=== PATIENT | female | born 1965 | race Caucasian/White ===

== ENCOUNTER → 2017-03-07 | Outpatient (CLI) | payer BC ==
[~2017-03-07] MED LIST: ASPIR-LOW81 MG PO; ASPIRIN 81M81 MG/TA2 PO; DIABETA 5MG5 MG/TAB PO; DUO-KAPS1 CAP PO; FOLIC ACID 11 MG/TA1 PO; JANUVIA 100MG100 MG PO; LISINOPRIL20 MG PO; LOPRESSOR 550 MG/TAB PO; METFORMIN HCL500 M1 PO; MICARDIS80 MG PO; MICRONASE1.25 MG; MICRONASE5 MG PO; MVI; OXY IR5 MG PO; PRILOSEC 20MG20 MG PO; TOPAMAX50 MG PO; TOPROL XL50 MG PO; ULTRAM 50MG TAB50 MG PO; VYTORIN; ZOCOR 20MG20 MG PO; [UNRECOGNIZED DRUG - REMARK]
== END ==
LOC: COL.RAD 07:53
DX: E11.9 Type 2 diabetes mellitus without complications (principal); R11.0 Nausea
CPT/HCPCS: A9541

== ENCOUNTER 2017-05-23 09:54 | Emergency (ER) | payer BC ==
[~2017-05-23] VITALS: Ht 170.2 cm; Wt 126.4 kg
[2017-05-23 09:59] VITALS: TEMP 99
[2017-05-23] MEDS ORDERED: JANUVIA 100MG100 MG PO (10:19)
[2017-05-23] MEDS ORDERED: FARXIGA10 PO (10:19)
[2017-05-23] MEDS ORDERED: MICARDIS40 MG PO (10:19)
[2017-05-23 11:00] LABS: COLLECTION METHOD CLEAN CATCH
[2017-05-23 11:12] LABS: BASO % 0.3 % (0.0-2.0); EOS % 0.7 % (0-4.0); GRAN # 2.2 (1.4-6.5); GRAN % 76.4 % (42.2-75.2); LYMPH # 0.4 (1.2-3.4); LYMPH % 12.7 % (20.0-51.0); MEAN CELL VOLUME 89 fl (80.0-100.0); MEAN CORPUSCULAR HGB CONC 32 g/dl (33.0-37.0); MONO # 0.3 (0.1-0.6); MONO % 9.6 % (1.7-9.3); RED BLOOD COUNT 4.01 M/mm3 (4.10-5.30); WHITE BLOOD COUNT 2.9 K/mm3 (4.8-10.8)
[2017-05-23 11:15] LABS: MUCOUS Present /lpf; PH 6 (5-8); SQUAMOUS EPITHELIAL 0-2 /hpf; URINE APPEARANCE Clear; URINE BACTERIA Rare /hpf; URINE BILIRUBIN Negative (NEGATIVE); URINE BLOOD Negative (NEGATIVE); URINE COLOR Amber; URINE GLUCOSE 3+ (NEGATIVE); URINE KETONE 2+ (NEGATIVE); URINE LEUKOCYTE ESTERASE Negative (NEGATIVE); URINE PROTEIN(semi-quant) Negative (NEGATIVE); URINE UROBILINOGEN >=4.0 mg/dL (NEGATIVE); URINE WBC 0-2 /hpf
[2017-05-23 11:18] LABS: ADJUSTED CALCIUM 9.7 mg/dL (8.4-10.2); ALANINE AMINOTRANSFERASE 48 U/L (9-52); ALBUMIN 3.8 gm/dL (3.5-5.0); ALCOHOL(ethanol),MEDICAL < 10 mg/dL; ALKALINE PHOSPHATASE 159 U/L (50-136); ANION GAP 15 mmol/L (7-16); BILIRUBIN,TOTAL 6.6 mg/dL (0.0-1.0); BLOOD UREA NITROGEN 15 mg/dL (7-17); CALCIUM 9.5 mg/dL (8.4-10.2); CARBON DIOXIDE 23 mmol/L (22-30); CHLORIDE 98 mmol/L (98-107); CREATININE, serum 0.64 mg/dL (0.52-1.25); GLUCOSE 184 mg/dL (74-106); LIPASE 279 U/L (23-300); SODIUM 136 mmol/L (137-145); TOTAL PROTEIN 8.7 gm/dL (6.4-8.2)
[2017-05-23 11:34] LABS: HEMATOCRIT 35.8 % (37.0-47.0); HEMOGLOBIN 11.3 g/dl (12.5-16.0); MEAN CORPUSCULAR HEMOGLOBIN 28 pg (27.0-31.0)
[2017-05-23 11:35] LABS: PLATELET COUNT 41 K/mm3 (130-400)
[2017-05-23 12:14] LABS: INR 2.2 (0.8-3.0)
[2017-05-23] MEDS ORDERED: ATIVAN 0.50.5 MG/TAB PO (12:28)
[2017-05-23] MEDS ORDERED: PHENERGAN 25 TA25 MG PO (12:28)
[2017-05-23] MEDS ORDERED: ZOFRAN ODT4 MG PO (12:28)
[2017-05-23 12:39] VITALS: BP 127/64; PULSE 103
== END 2017-05-23 12:40 | disposition home or self-care (01) ==
LOC: COL.ER 09:54
PROVIDERS: Physician Assistant
DX: F10.239 Alcohol dependence with withdrawal, unspecified (principal); R19.7 Diarrhea, unspecified; E11.9 Type 2 diabetes mellitus without complications; I10 Essential (primary) hypertension; Y90.0 Blood alcohol level of less than 20 mg/100 ml; Z87.19 Personal history of other diseases of the digestive system; Z86.2 Personal history of diseases of the blood and blood-forming organs and certain disorders involving the immune mechanism; Z79.82 Long term (current) use of aspirin
CPT/HCPCS: J2060; J2550; J7030

== ENCOUNTER → 2017-07-31 | Outpatient (CLI) | payer BC ==
[~2017-07-31] MED LIST changes: +ATIVAN 0.50.5 MG/TAB PO; +FARXIGA10 PO; +MICARDIS40 MG PO; +PHENERGAN 25 TA25 MG PO; +ZOFRAN ODT4 MG PO
== END ==
LOC: COL.RAD 10:28
DX: K74.60 Unspecified cirrhosis of liver (principal)

== ENCOUNTER → 2018-06-28 | Outpatient (CLI) | payer BC | LOC: MC.RAD 13:26 | DX: Z00.00 Encounter for general adult medical examination without abnormal findings (principal); N63.10 Unspecified lump in the right breast, unspecified quadrant | CPT/HCPCS: G0279 ==

== ENCOUNTER 2018-12-05 11:45 | Inpatient (IN) | payer BC ==
[~2018-12-05] VITALS: Ht 170.2 cm; Wt 121.0 kg
[2018-12-05] VITALS (10 sets, daily range): BP systolic 99–125; BP diastolic 35–51; PULSE 93–105; TEMP 97.8–98.1
[2018-12-05] MEDS ORDERED: WOMEN'S DAILY1 TAB PO (12:35)
[2018-12-05] MEDS ORDERED: VITAMIN B12 681 TAB PO (12:38)
[2018-12-05] MEDS ORDERED: B-121000 MCG PO (12:39)
[2018-12-05 13:49] LABS: BASO % 0.5 % (0.0-2.0); EOS # 0.1 (0.0-0.7); EOS % 2.3 % (0-4.0); GRAN # 1.4 (1.4-6.5); GRAN % 64.2 % (42.2-75.2); LYMPH # 0.4 (1.2-3.4); LYMPH % 18.3 % (20.0-51.0); MEAN CELL VOLUME 87 fl (80.0-100.0); MEAN CORPUSCULAR HGB CONC 28 g/dl (33.0-37.0); MONO # 0.3 (0.1-0.6); MONO % 14.2 % (1.7-9.3); REDCELL DISTRIBUTION WIDTH-CV 24.9 % (11.5-14.5)
[2018-12-05 13:50] LABS: INR 3.1 (0.8-3.0); PROTHROMBIN TIME 35.7 SECONDS (9.7-12.8)
[2018-12-05 13:52] LABS: ALBUMIN 2.4 gm/dL (3.5-5.0); BILIRUBIN,TOTAL 8.7 mg/dL (0.0-1.0); CREATININE, serum 0.84 (0.52-1.25); POTASSIUM 3.3 mmol/L (3.4-5.0)
[2018-12-05 13:53] LABS: IRON,SERUM 76 ug/dL (35-150)
[2018-12-05 14:01] LABS: HEMATOCRIT 22.5 % (37.0-47.0); MEAN CORPUSCULAR HEMOGLOBIN 24 pg (27.0-31.0)
[2018-12-05 14:02] LABS: HEMOGLOBIN 6.2 g/dl (12.5-16.0); TOTAL IRON BINDING CAPACITY 250 ug/dL (265-497)
[2018-12-05 14:03] LABS: PLATELET COUNT 45 K/mm3 (130-400)
[2018-12-05 14:29] LABS: FERRITIN 22 ng/mL (11-264)
--- NOTE | 2018-12-05 19:58 | NUR ---
Initial shift assessment done- denies pain/nausea. Visiting with family/friends at this time. No requests. Understands to remains NPO this shift- going for EGD banding at 1230 tomorrow. Tele on. Understands repeat H&H at 2200 tonight,, Has PICC to MASHA- NS at 150cc/hr
[2018-12-05 22:29] LABS: HEMATOCRIT 24.1 % (37.0-47.0); HEMOGLOBIN 6.8 g/dl (12.5-16.0)
--- NOTE | 2018-12-05 23:20 | NUR ---
Trena LOPEZ notified of HGB 6.8- Ordered another unit of blood to be given
[2018-12-06] VITALS (18 sets, daily range): BP systolic 97–148; BP diastolic 34–95; PULSE 76–99; TEMP 97–98.6
--- NOTE | 2018-12-06 00:21 | NUR ---
Unit of blood started at this time-infusing into PICC red port- protocol followed-
[2018-12-06 03:59] LABS: MEAN CELL VOLUME 86 fl (80.0-100.0); MEAN CORPUSCULAR HGB CONC 29 g/dl (33.0-37.0); PLATELET COUNT 50 K/mm3 (130-400); RED BLOOD COUNT 2.98 M/mm3 (4.10-5.30)
[2018-12-06 04:03] LABS: HEMATOCRIT 25.7 % (37.0-47.0); HEMOGLOBIN 7.5 g/dl (12.5-16.0); MEAN CORPUSCULAR HEMOGLOBIN 25 pg (27.0-31.0)
[2018-12-06 04:14] LABS: ALBUMIN 2.2 gm/dL (3.5-5.0); BILIRUBIN,TOTAL 11.8 mg/dL (0.0-1.0); CALCIUM 7.5 mg/dL (8.4-10.2); CREATININE, serum 0.88 (0.52-1.25); MAGNESIUM 1.5 mg/dL (1.6-2.3); POTASSIUM 4.4 mmol/L (3.4-5.0); TOTAL PROTEIN 6.8 gm/dL (6.4-8.2)
[2018-12-06 04:31] LABS: BAND 3 % (0-10); EOSINOPHIL 3 % (0-4); LYMPHOCYTE 17 % (20.0-51.0); NEUTROPHILS 66 % (42.0-75.2); PLATELET ESTIMATE DECREASED (NORMAL)
[2018-12-06 04:32] LABS: ANISOCYTOSIS 2+; HYPOCHROMIA 1+; POIKILOCYTOSIS 1+
--- NOTE | 2018-12-06 05:55 | NUR ---
Did get the one unit of blood during the night-- repeat hgb now 7.5, continues with NS at 150cc/hr and Octreotide at 50cc/hr, NPO for EGD at noon, consent signed
--- NOTE | 2018-12-06 07:20 | NUR ---
Patient is awake and alert upon entering room. States she is slightly anxious about getting EGD done and she is very hungry. She is denying having any pain. Personal items and call light are within reach.
[2018-12-06 15:23] LABS: HEMATOCRIT 25.7 % (37.0-47.0); HEMOGLOBIN 7.2 g/dl (12.5-16.0)
--- NOTE | 2018-12-06 15:29 | NUR ---
ASHTYN met with the patient to discuss discharge plan. The patient lives alone in [place]. She states that she has great friend support in the area. She reports independence with ADLs and does not use any DME. The patient's PCP is Dr. Thea Caceres and she receives her medications at the [facility]. She reports no difficulties obtaining her meds. The patient does not have advanced directives and she was not interested in completing them at this time. The patient plans to return home upon discharge. ASHTYN then addressed the patient's alcohol use. The patient reports that she just broke up with her boyfriend on Monday, who drank a lot and was a negative influence. She states that she has seen an addiction counselor in the past and would be interested in talking to someone again. ASHTYN discussed outpatient alcohol treatment options in the [place] area and provided her with information on those options and also addiction counselors in the [facility]. The patient plans to look over the options. The patient also informed ASHTYN that she has COBRA. ASHTYN consulted financial counselor, Avinash. Avinash plans to meet with the patient. ASHTYN to continue to follow.
--- NOTE | 2018-12-06 16:58 | NUR ---
Patient sitting up in bed with clear liquid diet. States broth has been soothing her throat and the morphine has helped. She feels as if she needs to belch. Encouraged to sit up or lay on left side for gas pains. Did want to stand. Was able to making machine operator one attempt and gait was steady. Call light and personal items are within reach.
--- NOTE | 2018-12-06 22:32 | NUR ---
Completed assessment and medication administration; PT tolerated all cares well; PT denied further needs or concerns at time of assessment; No further assessed or verbalized concerns at time of exit; PT able to return to a comfortable position in bed with personal items and call light with in reach; Fluids continue to run as ordered to RUE PICC; NS at 125ml/hr and Octreotide at 50ml/hr; Will continue to monitor. CDA
[2018-12-07] VITALS (13 sets, daily range): BP systolic 97–134; BP diastolic 38–65; PULSE 76–88; TEMP 97.9–98.7
--- NOTE | 2018-12-07 03:25 | NUR ---
PT resting well in bed with call light and personal items within reach; No further assessed or verbalized concerns at times of rounds; Fluids continue to run as ordered; Will continue to monitor. CDA
[2018-12-07 06:44] LABS: BASO % 0.5 % (0.0-2.0); EOS # 0.1 (0.0-0.7); EOS % 3.5 % (0-4.0); GRAN # 2.5 (1.4-6.5); GRAN % 69.1 % (42.2-75.2); LYMPH # 0.6 (1.2-3.4); LYMPH % 16.3 % (20.0-51.0); MEAN CELL VOLUME 89 fl (80.0-100.0); MEAN CORPUSCULAR HGB CONC 28 g/dl (33.0-37.0); MONO # 0.4 (0.1-0.6); MONO % 10.1 % (1.7-9.3); PLATELET COUNT 55 K/mm3 (130-400); RED BLOOD COUNT 2.98 M/mm3 (4.10-5.30); REDCELL DISTRIBUTION WIDTH-CV 22.8 % (11.5-14.5)
[2018-12-07 06:52] LABS: HEMATOCRIT 26.5 % (37.0-47.0); HEMOGLOBIN 7.4 g/dl (12.5-16.0); MEAN CORPUSCULAR HEMOGLOBIN 25 pg (27.0-31.0)
[2018-12-07 06:54] LABS: INR 2.7 (0.8-3.0)
[2018-12-07 06:57] LABS: ALBUMIN 2.3 gm/dL (3.5-5.0); CALCIUM 7.2 mg/dL (8.4-10.2); CREATININE, serum 0.87 (0.52-1.25); MAGNESIUM 1.8 mg/dL (1.6-2.3); PARTIAL THROMBOPLASTIN TIME 39.5 SECONDS (26.0-37.0)
--- NOTE | 2018-12-07 07:05 | NUR ---
Report given to TYREL Sims; No significant changes or concerns at time of shift change. CDA
--- NOTE | 2018-12-07 07:57 | NUR ---
Pt lying in bed, alert and oriented, awakens to verbal stimuli. Breathing even and unlabored, denies shortness of breath. C/O pain to ankle 09/02. Denies any pain in throat. Swallowing with no difficulty. Some swelling to left ankle still present. Completed morning assessment. Denies any needs at this time.
--- NOTE | 2018-12-07 12:09 | NUR ---
First visit from the career based intervention coordinator. No needs right now.
--- NOTE | 2018-12-07 14:58 | NUR ---
ASHTYN met with the patient to follow up on preference for outpatient alcohol treatment. The patient reports that she has not had a chance to look over the information ASHTYN provided, but plans to do so today and then get something set up. The patient had no other questions or concerns for ASHTYN at this time, but SW to continue to follow.
--- NOTE | 2018-12-07 17:23 | NUR ---
Pt lying in bed, opens eyes to verbal stimuli. Denies any pain or problems swallowing. No needs voiced at this time, will continue to monitor. Call light in reach.
[2018-12-07 19:01] LABS: COLLECTION METHOD CLEAN CATCH
--- NOTE | 2018-12-07 19:01 | NUR ---
REPORT GIVEN TO BRYSON SARAH
[2018-12-07 19:11] LABS: MUCOUS Present /lpf; PH 5 (5-8); URINE APPEARANCE Hazy; URINE BACTERIA Rare /hpf; URINE BILIRUBIN Positive (NEGATIVE); URINE BLOOD Negative (NEGATIVE); URINE COLOR Amber; URINE GLUCOSE Negative (NEGATIVE); URINE KETONE Negative (NEGATIVE); URINE LEUKOCYTE ESTERASE Negative (NEGATIVE); URINE NITRATE Negative (NEGATIVE); URINE PROTEIN(semi-quant) 1+ (NEGATIVE); URINE RBC None Seen /hpf; URINE UROBILINOGEN >=4.0 mg/dL (NEGATIVE)
--- NOTE | 2018-12-07 21:15 | NUR ---
Sitting at bedside. assessment complete. Lungs clear. Heart sounds normal. Bowels active x4. Pulses present throughout. Left ankle edema present +1. Picc to right upper without complications. Denies pain. Denies needs at this time. Call light in reach.
[2018-12-08] VITALS (12 sets, daily range): BP systolic 94–127; BP diastolic 43–66; PULSE 81–87; TEMP 98.2–98.9
--- NOTE | 2018-12-08 05:48 | NUR ---
Patient had unevenful night. Resting in bed this AM. Denies needs. Call light in reach.
--- NOTE | 2018-12-08 06:55 | NUR ---
Report given to TYREL Sims
[2018-12-08 07:09] LABS: BASO % 0.7 % (0.0-2.0); EOS # 0.1 (0.0-0.7); EOS % 3.6 % (0-4.0); GRAN % 66.1 % (42.2-75.2); LYMPH # 0.5 (1.2-3.4); LYMPH % 17.8 % (20.0-51.0); MEAN CELL VOLUME 90 fl (80.0-100.0); MEAN CORPUSCULAR HGB CONC 28 g/dl (33.0-37.0); MONO # 0.4 (0.1-0.6); MONO % 11.5 % (1.7-9.3); PLATELET COUNT 52 K/mm3 (130-400); RED BLOOD COUNT 2.79 M/mm3 (4.10-5.30); REDCELL DISTRIBUTION WIDTH-CV 22.9 % (11.5-14.5)
[2018-12-08 07:14] LABS: HEMATOCRIT 25.2 % (37.0-47.0); HEMOGLOBIN 7.1 g/dl (12.5-16.0); MEAN CORPUSCULAR HEMOGLOBIN 25 pg (27.0-31.0)
[2018-12-08 07:21] LABS: ALBUMIN 2.1 gm/dL (3.5-5.0); BILIRUBIN,TOTAL 12.6 mg/dL (0.0-1.0); CREATININE, serum 0.79 (0.52-1.25); TOTAL PROTEIN 6.5 gm/dL (6.4-8.2)
[2018-12-08 08:15] LABS: INR 3.3 (0.8-3.0); PROTHROMBIN TIME 37.3 SECONDS (9.7-12.8)
--- NOTE | 2018-12-08 09:00 | NUR ---
Pt sitting up in bed, alert and oriented. Breathing even and unlabored, denies pain or shortness of breath. No N/V today. Pt eager to leave, still waiting on doctor to discuss current medications infusing. Swelling still present in left foot, non pitting edema, pt denies pain. Completed morning assessment. Will continue to monitor. Call light in reach.
[2018-12-08] MEDS ORDERED: FERROUS SU325 MG/TAB PO (12:59)
[2018-12-08] MEDS ORDERED: FOLIC ACID 11 MG/TA1 PO (12:59)
[2018-12-08] MEDS ORDERED: THIAMINE 1100 MG/TAB PO (12:59)
--- NOTE | 2018-12-08 14:00 | NUR ---
BEGAN BLOOD TRANSFUSION AT 60ML/HR. TAUGHT PT ABOUT ADVERSE REACTIONS. THIS RN WILL STAY AT BEDISIDE FOR FIRST 15MIN.
--- NOTE | 2018-12-08 14:11 | NUR ---
No adverse reactions in first 15 minutes. Pt will alert for any adverse reactions. Sped up blood transfusion to 200ml/hr. Will continue to monitor.
--- NOTE | 2018-12-08 16:14 | NUR ---
Blood transfusion complete. Pt tolerated well, denies any shortness of breath or pain.
--- NOTE | 2018-12-08 16:30 | NUR ---
Discharge paperwork given. All questions asked and answered. Pt gathered all belongings. PICC line to be removed by Zayda SARAH.
--- NOTE | 2018-12-08 17:20 | NUR ---
Pt escorted out via wheelchair by [facility] staff.
== END 2018-12-08 17:20 | disposition home or self-care (01) | DRG 432 ==
LOC: MEDICAL 11:45
PROVIDERS: Internal Medicine Gastroenterology; Physician Assistant; ADMIT Family Medicine
PROC: 02HV33Z Insertion of Infusion Device into Superior Vena Cava, Percutaneous Approach (ICD-10-PCS; 2018-12-05)
PROC: 06L38CZ Occlusion of Esophageal Vein with Extraluminal Device, Via Natural or Artificial Opening Endoscopic (ICD-10-PCS; principal; 2018-12-06 12:30)
DX: K70.30 Alcoholic cirrhosis of liver without ascites (principal); I85.11 Secondary esophageal varices with bleeding; D61.818 Other pancytopenia; F10.288 Alcohol dependence with other alcohol-induced disorder; D62 Acute posthemorrhagic anemia; E87.6 Hypokalemia; E83.42 Hypomagnesemia; E11.9 Type 2 diabetes mellitus without complications; I10 Essential (primary) hypertension; R11.2 Nausea with vomiting, unspecified; R31.9 Hematuria, unspecified; M25.472 Effusion, left ankle; Z79.84 Long term (current) use of oral hypoglycemic drugs
CPT/HCPCS: 99223-AI; 99232-AI; 99239; C1751; C1892; C9113; J2270; J2354; J2405; J2704; J3475; J3480; J7030; J7040; P9016

== ENCOUNTER 2018-12-15 19:27 | Inpatient (IN) | payer BC ==
[~2018-12-15] VITALS: Ht 170.2 cm; Wt 125.0 kg
[~2018-12-15 19:27] MED LIST changes: +B-121000 MCG PO; +FERROUS SU325 MG/TAB PO; +THIAMINE 1100 MG/TAB PO; +VITAMIN B12 681 TAB PO; +WOMEN'S DAILY1 TAB PO
[2018-12-15 20:08] LABS: BASO % 0.5 % (0.0-2.0); EOS % 0.3 % (0-4.0); GRAN # 5.8 (1.4-6.5); GRAN % 88.6 % (42.2-75.2); HEMOGLOBIN 10.8 g/dl (12.5-16.0); LYMPH # 0.4 (1.2-3.4); LYMPH % 6.3 % (20.0-51.0); MEAN CELL VOLUME 86 fl (80.0-100.0); MEAN CORPUSCULAR HEMOGLOBIN 26 pg (27.0-31.0); MEAN CORPUSCULAR HGB CONC 30 g/dl (33.0-37.0); MONO # 0.3 (0.1-0.6); MONO % 3.8 % (1.7-9.3); PLATELET COUNT 66 K/mm3 (130-400); RED BLOOD COUNT 4.16 M/mm3 (4.10-5.30); REDCELL DISTRIBUTION WIDTH-CV 24.6 % (11.5-14.5)
[2018-12-15 20:11] LABS: HEMATOCRIT 35.9 % (37.0-47.0)
[2018-12-15 20:12] LABS: INR 4.7 (0.8-3.0)
[2018-12-15 20:15] LABS: PARTIAL THROMBOPLASTIN TIME 47.2 SECONDS (26.0-37.0)
[2018-12-15 20:20] LABS: PROTHROMBIN TIME 57.9 SECONDS (9.7-12.8)
[2018-12-15 20:29] LABS: ALANINE AMINOTRANSFERASE 20 U/L (9-52); ALBUMIN 2.3 gm/dL (3.5-5.0); ALKALINE PHOSPHATASE 119 U/L (50-136); ANION GAP 12 mmol/L (7-16); AST,SGOT 71 U/L (15-37); BILIRUBIN,TOTAL 19.4 mg/dL (0.0-1.0); BLOOD UREA NITROGEN 17 mg/dL (7-17); C-REACTIVE PROTEIN 3.9 mg/dL (0.0-0.9); CALCIUM 8.5 mg/dL (8.4-10.2); CARBON DIOXIDE 20 mmol/L (22-30); CHLORIDE 105 mmol/L (98-107); CREATININE, serum 1.57 (0.52-1.25); GLUCOSE 107 mg/dL (74-106); LIPASE 312 U/L (23-300); POTASSIUM 3.3 mmol/L (3.4-5.0); SODIUM 137 mmol/L (137-145); TOTAL PROTEIN 7.3 gm/dL (6.4-8.2)
[2018-12-15 20:36] LABS: ALCOHOL(ethanol),MEDICAL < 10 mg/dL
[2018-12-15 20:47] LABS: LACTIC ACID 4.1 mmol/L (0.4-2.0)
[2018-12-15 21:40] LABS: COLLECTION METHOD CLEAN CATCH
[2018-12-15 21:52] LABS: GRANULAR CAST >12 /lpf; HYALINE CAST >12 /lpf; MUCOUS Present /lpf; PH 5 (5-8); SQUAMOUS EPITHELIAL 20-50 /hpf; URINE APPEARANCE Cloudy; URINE BACTERIA Rare /hpf; URINE BILIRUBIN Positive (NEGATIVE); URINE BLOOD 3+ (NEGATIVE); URINE COLOR Amber; URINE GLUCOSE 1+ (NEGATIVE); URINE KETONE Negative (NEGATIVE); URINE LEUKOCYTE ESTERASE Negative (NEGATIVE); URINE NITRATE Negative (NEGATIVE); URINE PROTEIN(semi-quant) 2+ (NEGATIVE); URINE UROBILINOGEN >=4.0 mg/dL (NEGATIVE)
[2018-12-16] VITALS (863 sets, daily range): BP systolic 87–130; BP diastolic 43–65; PULSE 75–104; TEMP 97.5–99.3; O2SAT 76–100
[2018-12-16 05:16] LABS: BASO % 0.1 % (0.0-2.0); GRAN % 85.3 % (42.2-75.2); LYMPH # 0.5 (1.2-3.4); LYMPH % 6.6 % (20.0-51.0); MEAN CELL VOLUME 87 fl (80.0-100.0); MEAN CORPUSCULAR HGB CONC 31 g/dl (33.0-37.0); MONO # 0.5 (0.1-0.6); MONO % 7.6 % (1.7-9.3); PLATELET COUNT 51 K/mm3 (130-400); RED BLOOD COUNT 3.16 M/mm3 (4.10-5.30); REDCELL DISTRIBUTION WIDTH-CV 24.3 % (11.5-14.5)
[2018-12-16 05:21] LABS: HEMATOCRIT 27.5 % (37.0-47.0); HEMOGLOBIN 8.4 g/dl (12.5-16.0); MEAN CORPUSCULAR HEMOGLOBIN 27 pg (27.0-31.0)
[2018-12-16 05:30] LABS: ALBUMIN 1.9 gm/dL (3.5-5.0); BILIRUBIN,TOTAL 17.8 mg/dL (0.0-1.0); CREATININE, serum 1.78 (0.52-1.25); MAGNESIUM 1.3 mg/dL (1.6-2.3); POTASSIUM 3.5 mmol/L (3.4-5.0); TOTAL PROTEIN 5.9 gm/dL (6.4-8.2)
[2018-12-16 07:35] LABS: INR 5.6 (0.8-3.0); PROTHROMBIN TIME 68.7 SECONDS (9.7-12.8)
--- NOTE | 2018-12-16 08:00 | NUR ---
Shift assessment complete at this time. Plan of care reviewed at bedside with patient. Additional time taken to address any other needs or concerns. Vitals stable at this time. Pt denies pain or any other discomfort. Generalized jaundice noted throughout skin. Bed in low position, call light within reach. Will continue to monitor.
--- NOTE | 2018-12-16 12:00 | NUR ---
Shift reassessment complete at this time. No changes from previous assessment. Vitals stable at this time. Denies pain or any other discomfort. Bed in low position, call light within reach. No changes from previous neuro assessments. Will continue to monitor.
[2018-12-16 12:24] LABS: PROTHROMBIN TIME 61.9 SECONDS (9.7-12.8)
[2018-12-16 13:52] LABS: URINE PROTEIN:CREAT RATIO 0.43 (0.00-0.14)
--- NOTE | 2018-12-16 16:00 | NUR ---
Shift reassessment complete at this time. No changes from previous assessment. Vitals stable at this time. Denies pain or any other discomfort. Bed in low position, call light within reach. Will continue to monitor.
--- NOTE | 2018-12-16 19:01 | NUR ---
Bedside report given to TYREL Nicholas.
[2018-12-17] VITALS (398 sets, daily range): BP systolic 112–125; BP diastolic 46–76; PULSE 66–77; TEMP 97.8–99; O2SAT 87–99
[2018-12-17 05:18] LABS: MEAN CELL VOLUME 88 fl (80.0-100.0); MEAN CORPUSCULAR HGB CONC 30 g/dl (33.0-37.0); RED BLOOD COUNT 3.06 M/mm3 (4.10-5.30); REDCELL DISTRIBUTION WIDTH-CV 23.7 % (11.5-14.5)
[2018-12-17 05:22] LABS: INR 4.5 (0.8-3.0)
[2018-12-17 05:26] LABS: PROTHROMBIN TIME 54.5 SECONDS (9.7-12.8)
[2018-12-17 05:30] LABS: ALBUMIN 2.5 gm/dL (3.5-5.0); BILIRUBIN,TOTAL 20.1 mg/dL (0.0-1.0); CALCIUM 8.1 mg/dL (8.4-10.2); CREATININE, serum 1.77 (0.52-1.25); MAGNESIUM 1.7 mg/dL (1.6-2.3); PHOSPHOROUS 4.5 mg/dL (2.5-4.5); POTASSIUM 3.2 mmol/L (3.4-5.0); TOTAL PROTEIN 6.3 gm/dL (6.4-8.2)
[2018-12-17 05:43] LABS: HEMATOCRIT 26.9 % (37.0-47.0); HEMOGLOBIN 8.1 g/dl (12.5-16.0); MEAN CORPUSCULAR HEMOGLOBIN 26 pg (27.0-31.0)
[2018-12-17 05:44] LABS: PLATELET COUNT 47 K/mm3 (130-400)
[2018-12-17 05:56] LABS: BAND 3 % (0-10); BASOPHIL 1 % (0-2); EOSINOPHIL 2 % (0-4); NEUTROPHILS 80 % (42.0-75.2); PLATELET ESTIMATE DECREASED (NORMAL)
[2018-12-17 05:57] LABS: TARGET CELLS 1+
[2018-12-17 05:58] LABS: ANISOCYTOSIS 1+; HYPOCHROMIA 3+; MICROCYTOSIS 1+; POIKILOCYTOSIS 1+
[2018-12-17 05:59] LABS: LYMPHOCYTE 13 % (20.0-51.0)
--- NOTE | 2018-12-17 07:20 | NUR ---
Report received from TYREL Nicholas. Patient currently sleeping. Plan of Care reviewed. Octreotide gtt infusing. Care taken over at this time
--- NOTE | 2018-12-17 09:45 | NUR ---
Dr. Vargas here to see patient
--- NOTE | 2018-12-17 13:17 | NUR ---
Report given to TYREL Hardy. Patient transferred to room 318
--- NOTE | 2018-12-17 13:20 | NUR ---
patient arrived to the Medical floor room 318 from ICU at this time, she is alert/oriented, vital signs stable, ambulating with stand by assistance, she we will check a FSBS prior to her eating and MOLDING ENGINEER will help her with a shower
--- NOTE | 2018-12-17 20:59 | NUR ---
PT DENIES PAIN OR DISCOMFORT, SITTING IN RECLINER. SKIN VERY JAUNDICE. REMOVED IV FROM LW, IV INFLITRATED, CATHETER INTACT, APPLIED PRESSURE STILL BLEEDING STOPPED AND PLACED PROTECTIVE DRSG ON AREA. NO NEEDS AT THIS TIME, CALL LIGHT WITHIN REACH.
[2018-12-18] VITALS (7 sets, daily range): BP systolic 95–140; BP diastolic 33–78; PULSE 71–79; TEMP 98–98.9
--- NOTE | 2018-12-18 04:43 | NUR ---
PT ADVISES THAT SHE GOT HER PERIOD.
--- NOTE | 2018-12-18 04:47 | NUR ---
PT'S BLOOD PRESSURE LOW IN RIGHT ARM. PT ADVISES THAT THE UPPER PART OF HER RIGHT ARM HURTS WITH BP MACHINE. DID WRIST AREA ON LEFT ARM, TURNED OFF IV PUMP AND DID BP AND BP WAS WNL. PT REQUEST THAT BP BE TAKEN IN WRIST AREA DUE TO PAIN FROM BP MACHINE AND IV STICKS. PT RESTING IN BED WITH NO NEEDS AT THIS TIME AND CALL LIGHT WITHIN REACH.
--- NOTE | 2018-12-18 05:14 | NUR ---
PT'S SKIN IS STILL JAUNDICE AND ABDOMEN IS STILL DISTENDED PT HAD MENTIONED EARLIER THAT SHE IS ON HER MENSTRUAL CYCLE. PT ADVISES THAT SHE STILL GETS HER PERIODS. THEY HAVE NOT STOPPED YET. PT UP CONSTANTLY TO BATHROOM, BUT HAS BEEN RESTING WELL IN BED. CALL LIGHT WITHIN REACH.
[2018-12-18 06:22] LABS: BASO % 0.6 % (0.0-2.0); EOS # 0.2 (0.0-0.7); EOS % 4.5 % (0-4.0); GRAN # 2.1 (1.4-6.5); GRAN % 62.6 % (42.2-75.2); LYMPH # 0.6 (1.2-3.4); MEAN CELL VOLUME 87 fl (80.0-100.0); MEAN CORPUSCULAR HGB CONC 30 g/dl (33.0-37.0); MONO # 0.4 (0.1-0.6); RED BLOOD COUNT 3.02 M/mm3 (4.10-5.30)
[2018-12-18 06:29] LABS: HEMATOCRIT 26.4 % (37.0-47.0); HEMOGLOBIN 7.9 g/dl (12.5-16.0); MEAN CORPUSCULAR HEMOGLOBIN 26 pg (27.0-31.0)
[2018-12-18 06:30] LABS: PLATELET COUNT 41 K/mm3 (130-400)
--- NOTE | 2018-12-18 06:32 | NUR ---
DR. DECKER CALLED AND NOTIFIED OF PT'S CRITICAL LAB OF PLT COUNT 41. NO ORDERS GIVEN.
[2018-12-18 06:34] LABS: INR 4.6 (0.8-3.0)
[2018-12-18 06:35] LABS: ALBUMIN 2.6 gm/dL (3.5-5.0); BILIRUBIN,TOTAL 20.1 mg/dL (0.0-1.0); CALCIUM 8.5 mg/dL (8.4-10.2); CREATININE, serum 1.19 (0.52-1.25); TOTAL PROTEIN 6.3 gm/dL (6.4-8.2)
[2018-12-18 06:36] LABS: PROTHROMBIN TIME 56.3 SECONDS (9.7-12.8)
[2018-12-18 06:39] LABS: POTASSIUM 2.9 mmol/L (3.4-5.0)
[2018-12-18 08:20] LABS: PATHOLOGY DIFF REVIEW OK
--- NOTE | 2018-12-18 09:00 | NUR ---
According to primary care nurse, PICC on hold for now due to patient's INR result. Will review for PICC need in am.
--- NOTE | 2018-12-18 09:15 | NUR ---
Assessment completed, alert/oriented, vital signs stable, denies pain or discomfort, stated her belly feels "less full and softer", INR still 4.5 , potasisum 2.9, notified hospitalist of critical labs and patient overall condition, heart RRR, lungs CTA, abdomen distended but less firm this morning, she is eating and drinking without complication, denies other needs at this time
--- NOTE | 2018-12-18 11:25 | NUR ---
Initial visit; Patient thanked [employer] [facility] Director for looking in on her and offering God's blessings. Patient has been served [employer] over the weekend.
--- NOTE | 2018-12-18 12:20 | NUR ---
Met with pt this morning at bedside. Licensed Practical Nurse Clinic Nurse will stop to see her later as will drug abuse social worker. Using the Serious Illness Conversation Guide, reviewed her wishes and concerns. [place] is very important to her and she is very troubled about her financial sitaution at this time. Support provided. 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 May switch PCP to Dr Brantley after discharge. Feels supported by her friends and family. Not interested in AA but would like to start seeing her counselor, Estephania, if can get insurance coverage for this. Will continue to follow. Will provide resources for DPOA-HC.
--- NOTE | 2018-12-18 20:40 | NUR ---
Shift assessment complete. Pt resting in bed, awake, a&o, cooperative c cares. Pt denies pain or any other c/o, reports she feels like ascites/edema is decreasing. Pt noted to have very distended abd, soft, non-tender. Pt is also very jaundiced. INT patent. Pt denies needs. IND in room. Call light in reach. Will monitor.
[2018-12-19 04:13] VITALS: BP 117/47; PULSE 81; TEMP 98.2
[2018-12-19 07:05] LABS: EOS # 0.1 (0.0-0.7); EOS % 4.1 % (0-4.0); GRAN # 1.8 (1.4-6.5); GRAN % 58.7 % (42.2-75.2); LYMPH # 0.7 (1.2-3.4); MEAN CELL VOLUME 87 fl (80.0-100.0); MEAN CORPUSCULAR HGB CONC 30 g/dl (33.0-37.0); MONO # 0.5 (0.1-0.6); MONO % 14.6 % (1.7-9.3); RED BLOOD COUNT 3.12 M/mm3 (4.10-5.30); REDCELL DISTRIBUTION WIDTH-CV 22.7 % (11.5-14.5)
[2018-12-19 07:06] LABS: HEMATOCRIT 27.2 % (37.0-47.0); HEMOGLOBIN 8.2 g/dl (12.5-16.0); MEAN CORPUSCULAR HEMOGLOBIN 26 pg (27.0-31.0)
[2018-12-19 07:07] LABS: PLATELET COUNT 42 K/mm3 (130-400)
[2018-12-19 07:12] VITALS: BP 129/61; PULSE 70; TEMP 98.1
[2018-12-19 07:17] LABS: ALBUMIN 2.5 gm/dL (3.5-5.0); BILIRUBIN,TOTAL 20.4 mg/dL (0.0-1.0); CALCIUM 8.7 mg/dL (8.4-10.2); CREATININE, serum 0.85 (0.52-1.25); MAGNESIUM 1.4 mg/dL (1.6-2.3); POTASSIUM 3.1 mmol/L (3.4-5.0); TOTAL PROTEIN 6.3 gm/dL (6.4-8.2)
--- NOTE | 2018-12-19 09:02 | NUR ---
Assessment complete.patient awake,a/ox3.denies pain or discomfort at this time.breathing even and unlabored.crackles auscultated to bilat bases.reports feeling better with lasix.VSS.pottassiumm replaced.pt is visibly jaundiced.all meds given.IVF infusing.no other needs voiced at this time.will continue to monitor.call light in reach
--- NOTE | 2018-12-19 10:07 | NUR ---
Met with pt this am. She has talked with her sister about DPOA-HC and feels she will be the one she selects. I provided her with our DPOA-HC form and encouraged her to use it even if it is only a temporary one until she can complete a more personalized one if she desires. She is not sleeping or resting well because of frequent trips to the restroom to void or stool which is really wearing her down. I did discuss with her that these meds may be ongoing but that hopefully the doses can be adjusted as her condition allows to give her some time to rest. Her MELD score from Dr Morris is 39 per his notes. She is aware that is quite high but reports it usually comes down. She is considering changing her GI specialist as she needs to feel confident that she can talk with them and that they will talk to her. Discussed with Tamar BUSCH. support provided.
[2018-12-19 11:08] VITALS: BP 147/67; PULSE 75; TEMP 98.3
--- NOTE | 2018-12-19 11:52 | NUR ---
Initial visit; Patient thanked Supervisor [employer] for looking in on her again today and states that she is "doing ok."
[2018-12-19 12:22] LABS: INR 4.7 (0.8-3.0)
--- NOTE | 2018-12-19 13:25 | NUR ---
SW met with patient to discuss discharge planning and readmission. Patient reports she obtained her medications and took them as prescribed after her last admission. SW also followed up about the alcohol treatment resources that were provided by the socail worker from her last admission. Patient reported she did not utilize those resources but still has the packet that was given to her. SW inquired if she would like help setting up any alcohol treatment and patient reported that she wants to think about it more. Patient did not get set up with any home health services after her last admission but she would like to utilize those services when she is discharged. SW provided [facility] SW will fax referral to [facility]. Patient reports she lives at home alone but she has friend support. Patient's PCP is Dr Caceres and she obtains prescriptions from [facility]. Patient does not use any DME or home health currently. Patient reports she has a DPOA-HC but would like to change the person. SW will continue to follow as needed.
[2018-12-19 15:40] VITALS: BP 147/73; PULSE 80; TEMP 97.9
--- NOTE | 2018-12-19 18:56 | NUR ---
pt has had an unevenful day.patient remains jaundiced.continues to have good output.Reinforced 1500 Fluid restriction.patient resting in bed at this time.refused the 2units of insulin that was due at 1700.states she doesnt want it because she just ate and her accucheck was inaccurate.no other needs voiced at this time.call light in reach
--- NOTE | 2018-12-19 18:59 | NUR ---
report given to TYREL Troy.
--- NOTE | 2018-12-19 20:46 | NUR ---
PT AMBULATES IN ROOM AND GAIT STEADY NO ASSISTIVE DEVICES. PT A/O X4, DENIES PAIN OR DISCOMFORT AT THIS TIME. NO NEEDS CALL LIGHT WITHIN REACH.
[2018-12-19 20:53] VITALS: BP 130/47; PULSE 80; TEMP 98.6
[2018-12-19 23:39] VITALS: BP 116/39; PULSE 79; TEMP 98.3
--- NOTE | 2018-12-20 01:16 | NUR ---
PT DENIES PAIN OR DISCOMFORT AND AMBULATES IN ROOM. PT ADVISES THAT SHE DOES NOT HAVE HER PERIOD THAT SHE WAS WRONG. PT ADVISES THAT SHE HAS BEEN GETTING UP TO GO TO THE BATHROOM BUT NOT MUCH BEFORE. PT RESTING IN BED AND HOB ELEVATED TO 45 DEGREE ANGLE. NO NEEDS AT THIS TIME, CALL LIGHT WITHIN REACH.
[2018-12-20 04:05] VITALS: BP 116/39; PULSE 80; TEMP 98.9
--- NOTE | 2018-12-20 05:05 | NUR ---
UNEVENTFUL NIGHT, PT SLEEPING/RESTING WITH HOB AT 15 DEGREE ANGLE. NO S/S OF PAIN OR DISCOMFORT NOTED, CALL LIGHT WITHIN REACH.
--- NOTE | 2018-12-20 06:15 | NUR ---
PT UP TO BATHROOM AND THEN BACK TO BED, GAIT STEADY. PT DENIES PAIN OR DISCOMFORT. COVERED PT WITH SEVERAL BLANKETS FOR COMFORT REQUESTED BY PT. PT HAS CALL LIGHT WITHIN REACH. PT IS STILL JAUNDICE AND ABDOMEN DISTENDED.
--- NOTE | 2018-12-20 06:56 | NUR ---
REPORT RECEIVED FROM TYREL VENTURA.
[2018-12-20 07:21] LABS: BASO % 0.6 % (0.0-2.0); EOS # 0.2 (0.0-0.7); EOS % 5.2 % (0-4.0); GRAN # 1.9 (1.4-6.5); GRAN % 62.3 % (42.2-75.2); LYMPH # 0.6 (1.2-3.4); LYMPH % 19.7 % (20.0-51.0); MEAN CELL VOLUME 87 fl (80.0-100.0); MEAN CORPUSCULAR HGB CONC 31 g/dl (33.0-37.0); MONO # 0.4 (0.1-0.6); MONO % 11.9 % (1.7-9.3); REDCELL DISTRIBUTION WIDTH-CV 22.7 % (11.5-14.5)
[2018-12-20 07:37] LABS: ALBUMIN 2.4 gm/dL (3.5-5.0); BILIRUBIN,TOTAL 21.4 mg/dL (0.0-1.0); CALCIUM 8.6 mg/dL (8.4-10.2); CREATININE, serum 0.77 (0.52-1.25); POTASSIUM 3.2 mmol/L (3.4-5.0); TOTAL PROTEIN 6.3 gm/dL (6.4-8.2)
[2018-12-20 07:50] VITALS: BP 123/36; PULSE 79; TEMP 98
[2018-12-20 08:08] LABS: PROTHROMBIN TIME 61.6 SECONDS (9.7-12.8)
[2018-12-20 08:53] LABS: HEMATOCRIT 27.1 % (37.0-47.0); HEMOGLOBIN 8.3 g/dl (12.5-16.0); MEAN CORPUSCULAR HEMOGLOBIN 27 pg (27.0-31.0)
[2018-12-20 08:55] LABS: PLATELET COUNT 45 K/mm3 (130-400)
--- NOTE | 2018-12-20 09:00 | NUR ---
Assesment complete.patient sitting up in bed at this time.a/ox3.dnies pain or discomfort at this time.pt remains jaundiced.lung sounds fine crackles aus. bilat.pt UO is dark gaudencio.no bleeding noted.pt labs remain abnormal.pt remains on fluid restriction.no other need voiced at this time.will continue to monitor.call light in reach
[2018-12-20] MEDS ORDERED: LASIX 20MG TABL20 MG PO (10:08)
[2018-12-20] MEDS ORDERED: MAG-OX 400400 MG/TAB PO (10:21)
[2018-12-20] MEDS ORDERED: K-DUR20 MEQ PO (10:22)
[2018-12-20] MEDS ORDERED: [UNRECOGNIZED DRUG - OTHER] PO (10:29)
[2018-12-20 11:58] VITALS: BP 114/79; PULSE 87; TEMP 98.2
--- NOTE | 2018-12-20 12:50 | NUR ---
Attempted to meet with pt this morning but she reported was too tired to talk.
--- NOTE | 2018-12-20 13:43 | NUR ---
SW attended clinical rounds. Doctor explained to patient that her prognosis is not good. Patient understood. Patient's sister will be here from [place] tomorrow and will take patient home. ASHTYN spoke with Manpreet from [facility] and they will not be able to accept patient. Manpreet reported that his clinical team thinks that patient should be with a home health company that can help her transition into hospice care. ASHTYN met with patient about other home health options. Patient chose homecare and hospice. SW faxed a referral.
[2018-12-20 15:36] VITALS: BP 111/33; PULSE 87; TEMP 98.3
--- NOTE | 2018-12-20 15:37 | NUR ---
Able to meet with pt and have prepared DPOA-HC form for her signature per her specifications and requested notary to witness. Pt is now planning for discharge tomorrow when her sister can be here. She reports she has spoken with her sister about need for general power of finance attorney as well. Support provided and will follow through hospital stay.
--- NOTE | 2018-12-20 17:30 | NUR ---
REPORT GIVEN TO TYREL LAURA.
--- NOTE | 2018-12-20 17:30 | NUR ---
Received report from TYREL Muro. This nurse will resume cares for rest of shift. Visited with patient, denies needs at this time. Call light within reach.
--- NOTE | 2018-12-20 18:49 | NUR ---
Report given to TYREL Barrera.
[2018-12-20 19:31] VITALS: BP 140/63; PULSE 87; TEMP 98.1
--- NOTE | 2018-12-20 21:50 | NUR ---
PT RESTING IN BED TALKING ON PHONE. REPORTS NO PAIN. PT SKIN JAUNDICE. SWELLING IN BILATERAL FEET- LEFT IS 2+ RIGHT 1+. ABD DISTENDED, SOFT. SHIFT ASSESSMENT COMPLETE. NO NEEDS AT THIS TIME. CALL LIGHT IN REACH
[2018-12-21 00:21] VITALS: BP 114/45; PULSE 84; TEMP 98.2
--- NOTE | 2018-12-21 00:32 | NUR ---
BLOOD AND CLOTS NOTED IN URINE. NO PAIN. PT IV LEAKING BUT FLUSHES. - ATTEMPTED NEW IV ONCE- PT REFUSED NEXT ATTEMPT. NO NEEDS AT THIS TIME. CALL LIGHT IN REACH
[2018-12-21 04:20] VITALS: BP 113/40; PULSE 88; TEMP 98
--- NOTE | 2018-12-21 05:15 | NUR ---
PT HAD AN UNEVENTFUL NIGHT. REPORTS NO PAIN. NUERO CHECKS INSIGNIFICANT. SWELLING IN BILATERAL LOWER EXTREMITIES- LEFT EXTREMITY IS WORSE. PULSED PALPATED. NO NEEDS AT THIS TIME. CALL LIGHT IN REACH
[2018-12-21 07:04] LABS: BASO % 0.6 % (0.0-2.0); EOS # 0.1 (0.0-0.7); EOS % 4.5 % (0-4.0); GRAN # 2.1 (1.4-6.5); GRAN % 66.2 % (42.2-75.2); LYMPH # 0.5 (1.2-3.4); LYMPH % 16.9 % (20.0-51.0); MEAN CELL VOLUME 89 fl (80.0-100.0); MEAN CORPUSCULAR HGB CONC 30 g/dl (33.0-37.0); MONO # 0.4 (0.1-0.6); MONO % 11.2 % (1.7-9.3); RED BLOOD COUNT 2.99 M/mm3 (4.10-5.30); REDCELL DISTRIBUTION WIDTH-CV 23.3 % (11.5-14.5)
[2018-12-21 07:22] LABS: ALBUMIN 2.2 gm/dL (3.5-5.0); BILIRUBIN,TOTAL 21.4 mg/dL (0.0-1.0); CALCIUM 8.7 mg/dL (8.4-10.2); CREATININE, serum 0.68 (0.52-1.25); POTASSIUM 3.2 mmol/L (3.4-5.0)
--- NOTE | 2018-12-21 07:28 | NUR ---
report given to TYREL Muro
[2018-12-21 07:44] LABS: HEMATOCRIT 26.6 % (37.0-47.0); HEMOGLOBIN 7.9 g/dl (12.5-16.0); MEAN CORPUSCULAR HEMOGLOBIN 26 pg (27.0-31.0)
[2018-12-21 07:45] LABS: PLATELET COUNT 43 K/mm3 (130-400)
--- NOTE | 2018-12-21 07:50 | NUR ---
Assessment complete.patient awake,a/ox3.denies pain or discomfort at this time.breathing even and unlabored.all meds given.urine dark gaudencio.pt jaundiced.labs trending down.INT to LAC.pt denies any concerns at this time.no other needs voiced.call light in reach
[2018-12-21 08:15] VITALS: BP 116/44; PULSE 83; TEMP 98
[2018-12-21 09:03] LABS: INR 5.2 (0.8-3.0); PROTHROMBIN TIME 63.8 SECONDS (9.7-12.8)
--- NOTE | 2018-12-21 10:00 | NUR ---
Pt is anticipating discharge today after her sister arrives. We did complete her DPOA-HC this morning with ryan and she was given copies and a copies was placed on her chart. She remains very confident that she can manage at home but admits relief that her sister will be here for a little while.
[2018-12-21 11:22] VITALS: BP 123/55; PULSE 89; TEMP 98.3
[2018-12-21] MEDS ORDERED: KRISTALOSE20 GM/PACK PO (15:05)
--- NOTE | 2018-12-21 17:13 | NUR ---
PT DISCHARGE HOME AT THIS TIME.ALL DISCHARGE INSTRUCTIONS REVIEWED.SCRIPTS GIVEN TO PATIENT.IV DISCONTINUED.EDUCATION PROVIDED.QUESTIONS ANSWERED.BELONGINGS TAKEN.PAPERWORK SIGNED. STAFF ESCORTED PATIENT OUT.
[2018-12-26] MEDS ORDERED: Vitamin B-12 PO (01:42)
[2018-12-26] MEDS ORDERED: MEPHYTON 5MG5 MG/TAB PO (01:44)
[2018-12-26] MEDS ORDERED: WOMEN S MULTIVITAMIN PO (01:49)
[2018-12-26] MEDS ORDERED: ZOFRAN ODT4 MG PO (05:51)
== END 2018-12-21 17:15 | disposition home health service (06) | DRG 433 ==
LOC: COL.ER 19:27 → MEDICAL 22:53 → ICU 22:53 → MEDICAL 12-17 12:45
PROVIDERS: Emergency Medicine; Internal Medicine; Internal Medicine Critical Care Medicine; Internal Medicine Nephrology; Nurse Practitioner; Physician Assistant; ADMIT Family Medicine
DX: K70.30 Alcoholic cirrhosis of liver without ascites (principal); E87.2 Acidosis; D61.818 Other pancytopenia; N17.9 Acute kidney failure, unspecified; I85.10 Secondary esophageal varices without bleeding; E72.20 Disorder of urea cycle metabolism, unspecified; Z68.41 Body mass index [BMI] 40.0-44.9, adult; E44.0 Moderate protein-calorie malnutrition; R18.8 Other ascites; E87.0 Hyperosmolality and hypernatremia; I95.9 Hypotension, unspecified; D50.9 Iron deficiency anemia, unspecified; I10 Essential (primary) hypertension; F10.20 Alcohol dependence, uncomplicated; D64.9 Anemia, unspecified; E87.6 Hypokalemia; E11.9 Type 2 diabetes mellitus without complications; F41.9 Anxiety disorder, unspecified; N18.9 Chronic kidney disease, unspecified; E11.22 Type 2 diabetes mellitus with diabetic chronic kidney disease; I12.9 Hypertensive chronic kidney disease with stage 1 through stage 4 chronic kidney disease, or unspecified chronic kidney disease; E83.42 Hypomagnesemia; Z88.0 Allergy status to penicillin
CPT/HCPCS: 99222; 99223-AI; 99232-AI; 99233-AI; 99239; J0696; J1815; J1940; J2354; J2916; J3430; J3475; J7030; J7040; P9047

== ENCOUNTER 2018-12-30 19:25 | Emergency (ER) | payer BC ==
[~2018-12-30] VITALS: Ht 170.2 cm; Wt 118.2 kg
[~2018-12-30 19:25] MED LIST changes: +K-DUR20 MEQ PO; +KRISTALOSE20 GM/PACK PO; +LASIX 20MG TABL20 MG PO; +MAG-OX 400400 MG/TAB PO; +MEPHYTON 5MG5 MG/TAB PO; +Vitamin B-12 PO; +WOMEN S MULTIVITAMIN PO; +[UNRECOGNIZED DRUG - OTHER] PO
[2018-12-30 19:28] VITALS: TEMP 98
[2018-12-30 20:17] LABS: BASO % 0.5 % (0.0-2.0); EOS # 0.2 (0.0-0.7); EOS % 2.7 % (0-4.0); GRAN # 4.7 (1.4-6.5); GRAN % 80.1 % (42.2-75.2); LYMPH # 0.6 (1.2-3.4); LYMPH % 10.3 % (20.0-51.0); MEAN CELL VOLUME 89 fl (80.0-100.0); MEAN CORPUSCULAR HGB CONC 32 g/dl (33.0-37.0); MONO # 0.4 (0.1-0.6); MONO % 6.2 % (1.7-9.3); PLATELET COUNT 50 K/mm3 (130-400); RED BLOOD COUNT 3.45 M/mm3 (4.10-5.30); REDCELL DISTRIBUTION WIDTH-CV 25.2 % (11.5-14.5)
[2018-12-30 20:21] LABS: HEMATOCRIT 30.8 % (37.0-47.0); HEMOGLOBIN 9.7 g/dl (12.5-16.0); MEAN CORPUSCULAR HEMOGLOBIN 28 pg (27.0-31.0)
[2018-12-30 20:27] LABS: ALBUMIN 2.7 gm/dL (3.5-5.0); BILIRUBIN,TOTAL 23.2 mg/dL (0.0-1.0); CALCIUM 8.4 mg/dL (8.4-10.2); CREATININE, serum 1.14 (0.52-1.25); POTASSIUM 3.2 mmol/L (3.4-5.0); TOTAL PROTEIN 7.7 gm/dL (6.4-8.2)
[2018-12-30 20:29] LABS: PROTHROMBIN TIME 61.1 SECONDS (9.7-12.8)
[2018-12-30] MEDS ORDERED: ALDACTONE 25MG25 M1 PO (21:24)
[2018-12-30 21:28] LABS: COLLECTION METHOD CLEAN CATCH
[2018-12-30 21:45] VITALS: BP 133/66; PULSE 93
[2018-12-30 22:04] LABS: AMORPHOUS CRYSTAL Present /uL; MUCOUS Present /lpf; PH 6 (5-8); URINE APPEARANCE Hazy; URINE BACTERIA None Seen /hpf; URINE BILIRUBIN Positive (NEGATIVE); URINE BLOOD 1+ (NEGATIVE); URINE COLOR Amber; URINE GLUCOSE 3+ (NEGATIVE); URINE KETONE Negative (NEGATIVE); URINE LEUKOCYTE ESTERASE Negative (NEGATIVE); URINE NITRATE Negative (NEGATIVE); URINE PROTEIN(semi-quant) Negative (NEGATIVE); URINE UROBILINOGEN >=4.0 mg/dL (NEGATIVE)
== END 2018-12-30 21:46 | disposition home or self-care (01) ==
LOC: COL.ER 19:25
PROVIDERS: Emergency Medicine
DX: K70.31 Alcoholic cirrhosis of liver with ascites (principal)

== ENCOUNTER 2019-01-01 12:43 | Emergency (ER) | payer BC ==
[~2019-01-01] VITALS: Ht 170.2 cm; Wt 120.5 kg
[~2019-01-01 12:43] MED LIST changes: +ALDACTONE 25MG25 M1 PO
[2019-01-01 12:48] VITALS: TEMP 98.2
[2019-01-01 13:39] LABS: BASO % 0.4 % (0.0-2.0); EOS # 0.1 (0.0-0.7); EOS % 2.5 % (0-4.0); GRAN # 4.6 (1.4-6.5); GRAN % 82.6 % (42.2-75.2); LYMPH # 0.4 (1.2-3.4); LYMPH % 7.7 % (20.0-51.0); MEAN CELL VOLUME 91 fl (80.0-100.0); MEAN CORPUSCULAR HGB CONC 31 g/dl (33.0-37.0); MONO # 0.4 (0.1-0.6); MONO % 6.6 % (1.7-9.3); RED BLOOD COUNT 3.31 M/mm3 (4.10-5.30); REDCELL DISTRIBUTION WIDTH-CV 25.1 % (11.5-14.5)
[2019-01-01 13:48] LABS: PARTIAL THROMBOPLASTIN TIME 60.4 SECONDS (26.0-37.0)
[2019-01-01 13:52] LABS: ALBUMIN 2.4 gm/dL (3.5-5.0); BILIRUBIN,TOTAL 22.5 mg/dL (0.0-1.0); C-REACTIVE PROTEIN 2.2 mg/dL (0.0-0.9); CALCIUM 8.2 mg/dL (8.4-10.2); CREATININE, serum 1.16 (0.52-1.25); POTASSIUM 3.4 mmol/L (3.4-5.0)
[2019-01-01 13:53] LABS: HEMOGLOBIN 9.4 g/dl (12.5-16.0); MEAN CORPUSCULAR HEMOGLOBIN 28 pg (27.0-31.0); PLATELET COUNT 43 K/mm3 (130-400)
[2019-01-01 13:54] LABS: PROTHROMBIN TIME 70.1 SECONDS (9.7-12.8)
[2019-01-01 13:55] LABS: INR 5.6 (0.8-3.0)
[2019-01-01 15:50] VITALS: BP 110/71; PULSE 97
== END 2019-01-01 15:55 | disposition short-term general hospital (02) ==
LOC: COL.ER 12:43
PROVIDERS: Emergency Medicine
DX: K72.90 Hepatic failure, unspecified without coma (principal); E11.9 Type 2 diabetes mellitus without complications; I10 Essential (primary) hypertension; F41.9 Anxiety disorder, unspecified

== ENCOUNTER 2019-01-07 09:30 | Emergency (ER) | payer BC ==
[~2019-01-07] VITALS: Ht 170.2 cm; Wt 80.5 kg
[2019-01-07 09:41] VITALS: BP 132/80; TEMP 98.3
[2019-01-07 11:23] VITALS: PULSE 95
== END 2019-01-07 11:24 | disposition home or self-care (01) ==
LOC: COL.ER 09:30
DX: K72.90 Hepatic failure, unspecified without coma (principal)
CPT/HCPCS: J1170; J2550